=== PATIENT | male | born 1975 ===

== ENCOUNTER 2017-11-28 12:39 | Inpatient (IN) | payer OTHER ==
[~2017-11-28] VITALS: Ht 182.9 cm; Wt 124.7 kg
[2017-11-28] MEDS ORDERED: SYNTHROID125 MCG PO (12:49)
[2017-11-28] MEDS ORDERED: AVAPRO300 MG PO (12:49)
[2017-11-28] MEDS ORDERED: METFORMIN HCL500 M2 PO (12:49)
[2017-11-28] MEDS ORDERED: LANTUS SOL100 UNIT/1 (12:50)
[2017-12-08] MEDS ORDERED: ULTRACET PO (15:20)
[2017-12-08] MEDS ORDERED: FLAGYL500MG PO (15:20)
== END 2017-12-08 20:00 | disposition home or self-care (01) | DRG 358 ==
LOC: ER 12:39 → SURH 16:28 → SEC-K 16:28 → SURH 17:38
PROVIDERS: Surgery
PROC: BW3GY0Z Magnetic Resonance Imaging (MRI) of Pelvic Region using Other Contrast, Unenhanced and Enhanced (ICD-10-PCS; 2017-11-29)
PROC: 0JD73ZZ Extraction of Back Subcutaneous Tissue and Fascia, Percutaneous Approach (ICD-10-PCS; 2017-12-01)
PROC: 0D9Q7ZX Drainage of Anus, Via Natural or Artificial Opening, Diagnostic (ICD-10-PCS; 2017-12-01)
PROC: 0DJD8ZZ Inspection of Lower Intestinal Tract, Via Natural or Artificial Opening Endoscopic (ICD-10-PCS; 2017-12-01)
PROC: 0JBB0ZZ Excision of Perineum Subcutaneous Tissue and Fascia, Open Approach (ICD-10-PCS; principal; 2017-12-01 04:30)
PROC: 02HV33Z Insertion of Infusion Device into Superior Vena Cava, Percutaneous Approach (ICD-10-PCS; 2017-12-03)
DX: K61.0 Anal abscess (principal); I10 Essential (primary) hypertension; I73.89 Other specified peripheral vascular diseases; E11.65 Type 2 diabetes mellitus with hyperglycemia; E11.319 Type 2 diabetes mellitus with unspecified diabetic retinopathy without macular edema; E03.8 Other specified hypothyroidism; Z88.0 Allergy status to penicillin
CPT/HCPCS: 72196